=== PATIENT | male | born 1950 | race Caucasian/White ===

== ENCOUNTER 2016-09-27 15:02 | Emergency (ER) | payer MEDICAID ==
[2016-09-27 15:23] VITALS: RESP 18
--- NOTE | 2016-09-27 15:57 | C.PDOC ---
History Of Present Illness 65 Y/O MALE REFERRED BY PMD FOR BACK X-RAY. HISTORY OF CHRONIC LOWER BACK PAIN FOR 7-8 MONTHS WITH RADIATION OF PAIN TO RIGHT BUTTOCK AND LEG. NOTES PAIN WORSE AFTER LONG WALKING, WITH SOME PARESTHESIA, NO WEAKNESS. PATIENT REPORTS RELIEF WITH PERCOCET PRESCRIBED BY PMD BUT NOTES HE RAN OUT. DENIES ANY OTHER SYMPTOMS. NO PRIOR RADIOLOGY EVAL. EXAM BACK FITZGERALD ROM NORMAL GAIT NEURO GROSSLY INTACT REM NEG Time Seen by Provider: 09/27/16 15:33 Chief Complaint (Nursing): Back Pain History Per: Patient History/Exam Limitations: no limitations Onset/Duration Of Symptoms: Persistent Current Symptoms Are (Timing): Still Present Quality Of Discomfort: "Pain" Previous Symptoms: Back Pain, Chronic Pain Associated Symptoms: denies: New Weakness Exacerbating Factor(s): Other (LONG WALKING) Recent travel outside of the [place]: No Past Medical History Reviewed: Historical Data, Nursing Documentation, Vital Signs Vital Signs: Last Vital Signs Temp 97.3 F L 09/27/16 15:21 Pulse 72 09/27/16 15:21 Resp 18 09/27/16 15:21 BP 119/86 09/27/16 15:21 Pulse Ox 98 09/27/16 16:12 Family History: States: Unknown Family Hx - Social History Hx Alcohol Use: No Hx Substance Use: No Review Of Systems Except As Marked, All Systems Reviewed And Found Negative. Constitutional: Negative for: Fever, Chills Cardiovascular: Negative for: Chest Pain Respiratory: Negative for: Shortness of Breath Gastrointestinal: Negative for: Nausea, Vomiting Musculoskeletal: Positive for: Back Pain. Negative for: Neck Pain Skin: Negative for: Rash Neurological: Negative for: Weakness Physical Exam - Physical Exam Appears: Non-toxic, No Acute Distress Skin: Warm, Dry Head: Atraumatic, Normacephalic Neck: No Midline Cervical Tenderness, No Paracervical Tenderness, Supple Chest: Symmetrical Cardiovascular: Rhythm Regular Respiratory: Normal Breath Sounds, No Rales, No Rhonchi, No Wheezing Gastrointestinal/Abdominal: Soft, No Tenderness, No Guarding, No Rebound Back: No Vertebral Tenderness, Decreased ROM Extremity: Normal ROM, Capillary Refill (< 2 SEC. ) Neurological/Psych: Oriented x3, Normal Speech, Normal Cognition, Other (NEURO GROSSLY INTACT.) Gait: Steady ED Course And Treatment O2 Sat by Pulse Oximetry: 98 (RA) Pulse Ox Interpretation: Normal - Other Rad LS SPINE X-Ray: Interpreted by Me (NEG) Progress - Re-Evaluation Re-evaluation Note: 09/27/16 15:41 njrx REPORT 09/07/2016 ENDOCET 10-325 MG TABLET 15.0 5 09/06/2016 TRAMADOL-ACETAMINOPHN 37.5-325 30.0 8 02/18/2016 TRAMADOL-ACETAMINOPHN 37.5-325 30 15 09/27/16 16:11 PLAN X-RAY. EMERGENCY DEPARTMENT PAIN MANAGEMENT POLICY DISCUSSED. ADVISED FOLLOW UP WITH PMD FOR FURTHER PAIN EVALUATIONS. PATIENT NOTES HE GETS GI UPSET WITH NSAIDS, WAS OFFERED TO BE STARTED ON GABAPENTIN, BUT "PREFERS TO STAY ON PERCOCET". - Data Reviewed Data Reviewed: Diagnostic imaging, Old records, Other Disposition Counseled Patient/Family Regarding: Studies Performed, Diagnosis, Need For Followup - Disposition Referrals: YOUR,PMD [Other] Disposition: HOME/ ROUTINE Disposition Time: 17:07 Condition: IMPROVED Instructions: Sciatica (ED), Chronic Back Pain (ED) - Clinical Impression Clinical Impression: Chronic lower back pain - Scribe Statement The provider has reviewed the documentation as recorded by the Lorena Luther Provider Scribe Attestation: All medical record entries made by the Scribe were at my direction and personally dictated by me. I have reviewed the chart and agree that the record accurately reflects my personal performance of the history, physical exam, medical decision making, and the department course for this patient. I have also personally directed, reviewed, and agree with the discharge instructions and disposition.
[2016-09-27] MEDS ORDERED: Oxycodone/Acetaminophen 5/325 mg Tab PO STA (16:39)
[2016-09-27] MEDS ORDERED: Oxycodone/Acetaminophen 5/325 mg Tab ONE (16:50)
[2016-09-27 17:22] VITALS: BP 136/79; PULSE 59; TEMP 97.4; O2SAT 97
--- NOTE | 2016-09-27 19:11 | RAD ---
PROCEDURE: Lumbar spine dated 09/27/2016 HISTORY: TRAUMA COMPARISON: No prior study available comparison. FINDINGS: BONES: Current study reveals no acute compression fractures no retropulsed fragments. Vertebral bodies exhibit normal stature aside from minor fish-mouth endplate deformities. There is straightening of the normal lumbar lordosis with a very minor levoscoliosis centered at the thoracolumbar junction. Vertebral bodies and facets are otherwise normally aligned. The vertebral bodies otherwise exhibit relatively normal stature DISC SPACES: Multilevel degenerative spondylosis. Changes include varying degrees of disc space narrowing most notably involving the L5-S1 segment. Mild multilevel disc space narrowing with endplate eburnation and anterolateral osteophyte formation. There also appears to be a small amount of vacuum disc phenomena at the L4-L5 and possibly the L3-L4 levels. OTHER FINDINGS: None. IMPRESSION: No acute fractures. Multilevel degenerative spondylosis as described. . Straightening and mild levoscoliosis as detailed above
== END 2016-09-27 17:22 | disposition home or self-care (01) ==
LOC: C.ER 15:02
DX: G89.29 Other chronic pain (principal); M54.5 Low back pain